=== PATIENT | female | born 1935 | race Caucasian/White ===

== ENCOUNTER 2018-10-07 09:42 | Emergency (ER) | payer MEDICARE, OTHER ==
[2018-10-07] MEDS ORDERED: ACETAMINOPHEN 500 MG TAB (10:10)
[2018-10-07] MEDS: ACETAMINOPHEN 500 MG TAB PO (10:15)
== END 2018-10-07 12:32 | disposition home or self-care (01) ==
LOC: FTE 09:42
DX: S82.891A Other fracture of right lower leg, initial encounter for closed fracture (principal); W01.198A Fall on same level from slipping, tripping and stumbling with subsequent striking against other object, initial encounter; Y92.9 Unspecified place or not applicable
CPT/HCPCS: 29515; 73562; 73590; 73610-RT; 73630; 99283-25